=== PATIENT | female | born 1940 | race Caucasian/White ===

== ENCOUNTER → 2017-10-17 | Outpatient (CLI) | payer MEDICARE ==
[~2017-10-17] MED LIST: ASPI-496 PO; ASPI1TAB31 PO; ASTELIN INH; CALC-451 PO; DIAZ5TAB4 PO; FOLI-17 PO; GABA300C10 PO; HYDR2TAB29 PO; IBUP-1221 PO; LEVO25TA4 PO; LEVO50TA5 PO; OMEG-14 PO; OMEP20TA62 PO; RIVA10TA PO; TRAM50TA2 PO; VITA1TAB3 PO
== END | disposition home or self-care (01) ==
LOC: CFH 08:38
PROVIDERS: ATTEND Family Medicine
DX: I35.2 Nonrheumatic aortic (valve) stenosis with insufficiency (principal)
CPT/HCPCS: 93306